=== PATIENT | male | born 1950 | race Asian ===

== ENCOUNTER 2021-12-15 08:33 | Inpatient (IN) | payer OTHER ==
[~2021-12-15] VITALS: Ht 167.6 cm; Wt 64.0 kg
[2021-12-15 08:33] VITALS: BP_SYST 179
--- NOTE | 2021-12-15 08:33 | NUR ---
BROUGHT IN BY [facility], TRIAGED, PT TO GO TO BED #4. REPORT GIVEN TO LATOYA
--- NOTE | 2021-12-15 08:35 | NUR ---
ED MD WOOD AT BEDSIDE
--- NOTE | 2021-12-15 09:00 | NUR ---
RECEIVED PT IN BED #4 FROM HOME BIB BLS FOR CC OF BILATERAL SWELLING OF THE LOWER LEGS. PT IS STABLE, IN NAD, VSS, AAOx3, LOOKS BESHEVELED AND UNKEMPT. AWAITING ADDITIONAL ASSESSMENTS FOR PLAN OF CARE WITH DISPOSITION.
[2021-12-15 09:48] LABS: BASOPHILS % (AUTO) 0.5 % (0.0-2.0); EOSINOPHILS # (AUTO) 0.1 K/uL (0.0-0.4); EOSINOPHILS % (AUTO) 0.9 % (0.0-4.0); HEMATOCRIT 42.4 % (36-54); HEMOGLOBIN 14.3 g/dL (14.0-18.0); LYMPHOCYTES # (AUTO) 1.1 K/uL (1.0-5.5); LYMPHOCYTES % (AUTO) 18.9 % (20.5-51.5); MEAN CORPUSCULAR HEMOGLOBIN 32 pg (27-31); MEAN CORPUSCULAR HGB CONC 34 % (32-36); MEAN CORPUSCULAR VOLUME 93 fL (79.0-98.0); MONOCYTES # (AUTO) 0.4 K/uL (0.0-1.0); MONOCYTES % (AUTO) 6.8 % (1.7-9.3); NEUTROPHILS # (AUTO) 4.4 K/uL (1.8-7.7); NEUTROPHILS % (AUTO) 72.9 % (40.0-70.0); PLATELET COUNT (AUTO) 167 K/uL (130-430); RED BLOOD CELL COUNT(AUTO) 4.55 MIL/uL (4.2-6.2); RED CELL DISTRIBUTION WIDTH 13.3 % (9.0-15.0)
[2021-12-15 10:08] LABS: BILIRUBIN,URINE NEGATIVE (NEGATIVE); CLARITY/URINE CLEAR (CLEAR); GLUCOSE,URINE 3+ (NEGATIVE); KETONES,URINE 1+ (NEGATIVE); LEUKOCYTE ESTERASE ,URINE NEGATIVE (NEGATIVE); NITRITE, URINE NEGATIVE (NEGATIVE); PROTEIN URINE TRACE (NEGATIVE); UROBILINOGEN,URINE 0.2 (0.2-1.0)
[2021-12-15 10:10] LABS: BLOOD, URINE TRACE (NEGATIVE); COLOR,URINE STRAW (YELLOW)
[2021-12-15 10:21] LABS: ALANINE AMINOTRANSFERASE 11 U/L (12-78); ALBUMIN 2.6 g/dL (3.4-4.8); ANION GAP 11 (5-15); ASPARTATE AMINOTRANSFERASE 16 U/L (10-37); CALCIUM 8.5 mg/dL (8.4-11.0); CHLORIDE 98 mmol/L (98-107); CREATININE 1.62 mg/dL (0.55-1.30); SODIUM SERUM 133 mmol/L (136-145); TOTAL BILIRUBIN 0.2 mg/dL (0.0-1.0); UREA NITROGEN, BLOOD 35 mg/dL (8-21)
[2021-12-15 10:28] LABS: GFR AFRICAN AMERICAN 54 mL/min (>90)
[2021-12-15 10:29] LABS: GLUCOSE 539 mg/dL (70-99)
[2021-12-15 10:46] LABS: BACTERIA,URINE FEW /HPF (None Seen); WBC,URINE 0-3 /HPF (0-3)
[2021-12-15] MEDS ORDERED: INSULIN REGULAR, HUMAN 10 UNITS/0.1 ML INJ SUBCUT ONE (11:15)
[2021-12-15] MEDS ORDERED: ASPIRIN 325 MG TABLET PO ONE (11:15)
[2021-12-15] MEDS ORDERED: NACL 0.9% 1,000 ML IV ONE (11:15)
--- NOTE | 2021-12-15 11:50 | NUR ---
Admit bed requested Patient will be admitted to care of . Admitted to TELEMETRY unit. Diagnosis NSTEMI AND EMANUEL Inpatient (Yes or No) Y Observation (Yes or No) B Orientation concerns or request close to nursing station (Yes or No) N Covid Status N On vent or bipap N Isolation requirements N Needs a sitter N From Home (Yes or if No enter name of facility) Y Requires Dialysis (Yes or No) N Med Rec Completed (Yes of No) Y
--- NOTE | 2021-12-15 12:37 | NUR ---
COVID-19 LINDSEY SWAB OBTAINED AND SENT TO THE LAB.
--- NOTE | 2021-12-15 12:47 | NUR ---
Patient will be admitted to care of [facility]. Admitted to TELEMETRY unit. Will go to room 107A. Belongings list completed. Complete and up to date summary report printed. SBAR report to be given at bedside with opportunity for questions.
[2021-12-15 13:30] VITALS: BP_SYST 147
--- NOTE | 2021-12-15 13:30 | NUR ---
ADMIT NOTES PATIENT IS AWAKE, ALERT, AND ORIENTED. AMBULATORY WITH ASSISTANCE. VITAL SIGNS OBTAINED. PATIENT SPO2 AT 98% ON ROOM AIR. NO S/S OF DISTRESS NOTED. PATIENT STATES PAIN 3/ 10 TOLERABLE. NO REQUEST OF PAIN MEDS. PATIENT HAS BEEN ORIENTED TO THE ROOM AND USE OF CALL LIGHT. PATIENT AWARE TO CALL FOR ASSISTANCE. SAFETY PRECAUTIONS IN PLACE AND CALL LIGHT WITHIN REACH.
--- NOTE | 2021-12-15 13:40 | NUR ---
CONSULTATION PAGED/CALLED Reason for Consultation: [] EMANUEL Person Who was Notified: [] NASH Consulting Physician: [] DR Vanessa YU Occupancy Specialist Specialty: [] TUNNELING MACHINE OPERATOR Ordering Physician: [] DR CHOW
--- NOTE | 2021-12-15 13:44 | NUR ---
CONSULTATION PAGED/CALLED Reason for Consultation: [] NSTEMI Person Who was Notified: [] DR Sedrick CHOW Consulting Physician: [] DR Sedrick CHOW Facilities Engineering Manager Specialty: [] CARDIO Ordering Physician: [] DR Merlene CHOW
[2021-12-15 16:00] VITALS: BP_SYST 156
--- NOTE | 2021-12-15 16:00 | NUR ---
NOTES ASSISTED PATIENT TO RESTROOM. PATIENT DENIES ANY PAIN OR DISCOMFORT AT THIS MOMENT. PATIENT BACK IN BED. SAFETY PRECAUTIONS IN PLACE AND CALL LIGHT WITHIN REACH.
[2021-12-15] MEDS ORDERED: GLIP10TA11 PO (17:58)
[2021-12-15] MEDS ORDERED: METF-518 PO (17:58)
[2021-12-15] MEDS ORDERED: amLODIPine BESYLATE 10 MG TABLET PO ONE (18:30)
[2021-12-15] MEDS ORDERED: hydrALAZINE HCL 20 MG/ML VIAL IV PRN (18:30)
--- NOTE | 2021-12-15 18:30 | NUR ---
CLOSING NOTES PATIENT IN BED, EATING DINNER, HOB ELEVATED. NO S/S OF DISTRESS. NO SOB. PATIENT DENIES ANY PAIN AT THIS TIME. BREATHING IS EVEN AND NON LABORED. SPO2 98- 99% ON ROOM AIR. SAFETY PRECAUTIONS IN PLACE AND CALL LIGHT WITHIN REACH. PATIENT AWARE TO CALL FOR ASSISTANCE WHEN NEEDED.
[2021-12-15] MEDS ORDERED: ACETAMINOPHEN 325 MG TABLET PO PRN (18:45)
[2021-12-15] MEDS ORDERED: HYDROcodone/ACETAMIN 5-325 MG TAB (NORCO/ VICODIN) PO PRN ×2 (18:45)
[2021-12-15] MEDS ORDERED: metFORMIN HCL 500 MG TABLET PO ONE (18:45)
[2021-12-15 21:02] VITALS: BP_SYST 158
[2021-12-15] MEDS: INSULIN REGULAR, HUMAN 100 UNITS/ML, 10 ML VIAL (humuLIN R) SUBCUT PRN (21:29)
--- NOTE | 2021-12-15 21:30 | NUR ---
Blood glucose 516. 12 units insulin given per SSI parameter. MD notified. No further orders at this time. Will continue to monitor
[2021-12-15] MEDS ORDERED: ONDANSETRON HCL 4 MG/2 ML VIAL IVP PRN (23:15)
[2021-12-15] MEDS ORDERED: LORazepam 2 MG/ML VIAL IVP PRN (23:15)
--- NOTE | 2021-12-16 00:26 | NUR ---
CONSULTATION CALLED FOR DR. SHUKLA-SAYED FOR CONSULT OF DM ORDER BY GERALDO LI SPOKE WITH DR JERZY ALMEIDA
[2021-12-16] MEDS: NACL 0.9% 1,000 ML IV SCH ×2 (01:10→09:15)
[2021-12-16 01:43] VITALS: BP_SYST 129
[2021-12-16 04:21] VITALS: BP_SYST 140
[2021-12-16 07:32] LABS: ALBUMIN 2.5 g/dL (3.4-4.8); CALCIUM 8.2 mg/dL (8.4-11.0); CREATININE 1.22 mg/dL (0.55-1.30); PHOSPHORUS 3.4 mg/dL (2.7-4.5); POTASSIUM 3.4 mmol/L (3.5-5.1); TOTAL BILIRUBIN 0.2 mg/dL (0.0-1.0)
[2021-12-16 07:56] LABS: BASOPHILS % (AUTO) 0.3 % (0.0-2.0); EOSINOPHILS # (AUTO) 0.2 K/uL (0.0-0.4); HEMATOCRIT 41.9 % (36-54); HEMOGLOBIN 14.4 g/dL (14.0-18.0); LYMPHOCYTES # (AUTO) 2.7 K/uL (1.0-5.5); LYMPHOCYTES % (AUTO) 32.5 % (20.5-51.5); MEAN CORPUSCULAR HEMOGLOBIN 32 pg (27-31); MEAN CORPUSCULAR HGB CONC 34 % (32-36); MEAN CORPUSCULAR VOLUME 92 fL (79.0-98.0); MONOCYTES # (AUTO) 0.5 K/uL (0.0-1.0); MONOCYTES % (AUTO) 5.7 % (1.7-9.3); NEUTROPHILS # (AUTO) 4.9 K/uL (1.8-7.7); NEUTROPHILS % (AUTO) 59.5 % (40.0-70.0); PLATELET COUNT (AUTO) 165 K/uL (130-430); RED BLOOD CELL COUNT(AUTO) 4.53 MIL/uL (4.2-6.2); RED CELL DISTRIBUTION WIDTH 13.3 % (9.0-15.0); WHITE BLOOD COUNT (AUTO) 8.2 K/uL (4.8-10.8)
[2021-12-16] MEDS ORDERED: GLUCOSE (DEXTROSE) ORAL GEL -Adults PO PRN (08:30)
[2021-12-16] MEDS ORDERED: D5W 1,000 ML IV PRN (08:30)
[2021-12-16] MEDS ORDERED: DEXTROSE 50% JECT 50 ML DISP.SYRIN IVP PRN (08:30)
[2021-12-16] MEDS ORDERED: PIOGLITAZONE HCL 15 MG TABLET PO SCH (09:00)
[2021-12-16] MEDS ORDERED: amLODIPine BESYLATE 10 MG TABLET PO SCH (09:00)
[2021-12-16] MEDS: metFORMIN HCL 500 MG TABLET PO SCH ×2 (10:19→18:08)
[2021-12-16] MEDS: INSULIN REGULAR, HUMAN 100 UNITS/ML, 10 ML VIAL (humuLIN R) SUBCUT PRN ×2 (11:00→18:16)
[2021-12-16] MEDS ORDERED: POTASSIUM CHLORIDE 20 MEQ TAB.PRT.SR PO ONE (11:45)
[2021-12-16] MEDS ORDERED: HYDR-3919 PO (11:46)
[2021-12-16] MEDS ORDERED: METF-379 PO (11:46)
[2021-12-16] MEDS ORDERED: PIOG15TA8 PO (11:46)
[2021-12-16] MEDS ORDERED: NOR10 PO (11:46)
[2021-12-16] MEDS ORDERED: GLIP10TA11 PO (11:46)
[2021-12-16 12:49] VITALS: BP_SYST 149
[2021-12-16 15:30] VITALS: BP_SYST 149
[2021-12-16 16:29] VITALS: BP_SYST 137
--- NOTE | 2021-12-16 19:15 | NUR ---
Handoff has been given to VIKTOR
--- NOTE | 2021-12-16 19:22 | NUR ---
Mr Tomlin has been assessed as indicated. he had been noted to be both pleasant and cooperative. He has been DC to home however he is presently waiting for a TAXI. all DC instructions have been reviewed. He has expressed that he understood, and signed documentation to indicate as much. IV access has been removed. Heart monitor has been removed. He is dressed in street shoes that have been provided by the hospital and hospital issued pant and gown due to the fact that his garments from home are aoiled. he has no s/s of distress or discomfort and is compliant with the plan to DC to home today.
--- NOTE | 2021-12-16 21:00 | NUR ---
Dr. Collado present on unit and stated that he wanted to make changes to patient's diabetes medications. Since taxi was scheduled to arrive in 10-15 minutes to take patient home, Dr. Collado gave instructions to have patient call his office on Sunday and make a follow up appointment. Patient given Dr. Collado's business card with phone number and verbalized understanding of instructions to make a follow up appointment on Sunday.
--- NOTE | 2021-12-16 21:19 | NUR ---
D/C Patient Patient given D/C instructions and Dr. Collado's contact info and instructed to make a follow up appointment on Sunday. Patient verbalized understanding. Patient in stable condition, BP 144/86, HR 71. ID band removed. IV catheter removed by day shift nurse, no active bleeding noted. All belongings sent with patient. [facility] for discharge to home.
[2021-12-17] MEDS ORDERED: metFORMIN HCL 500 MG TABLET PO SCH (08:00)
[2021-12-17] MEDS ORDERED: INSULIN GLARGINE 100 UNITS/ML 10 ML VIAL SUBCUT SCH (09:00)
== END 2021-12-16 21:19 | disposition home or self-care (01) | DRG 682 ==
LOC: SED 08:33 → STU 11:08
PROVIDERS: ADMIT Preventive Medicine Preventive Medicine/Occupational Environmental Medicine; ATTEND Preventive Medicine Preventive Medicine/Occupational Environmental Medicine
DX: N17.0 Acute kidney failure with tubular necrosis (principal); I21.A1 Myocardial infarction type 2; E43 Unspecified severe protein-calorie malnutrition; S22.31XA Fracture of one rib, right side, initial encounter for closed fracture; E87.1 Hypo-osmolality and hyponatremia; I42.9 Cardiomyopathy, unspecified; N17.9 Acute kidney failure, unspecified; E11.65 Type 2 diabetes mellitus with hyperglycemia; I12.9 Hypertensive chronic kidney disease with stage 1 through stage 4 chronic kidney disease, or unspecified chronic kidney disease; E88.09 Other disorders of plasma-protein metabolism, not elsewhere classified; E11.21 Type 2 diabetes mellitus with diabetic nephropathy; Z20.822 Contact with and (suspected) exposure to COVID-19; X58.XXXA Exposure to other specified factors, initial encounter; E11.22 Type 2 diabetes mellitus with diabetic chronic kidney disease; N18.9 Chronic kidney disease, unspecified; Z79.84 Long term (current) use of oral hypoglycemic drugs; Y93.89 Activity, other specified; Y92.89 Other specified places as the place of occurrence of the external cause; Y99.8 Other external cause status
CPT/HCPCS: 36415; 71045; 76770; 80053; 81000; 82962; 83735; 83880; 84100; 84484; 85025; 93005; 93306; 96372; 99285; G0378; J0360; J1815

== ENCOUNTER 2022-01-18 08:38 | Inpatient (IN) | payer OTHER ==
[~2022-01-18] VITALS: Ht 165.1 cm; Wt 72.6 kg
[~2022-01-18 08:38] MED LIST: GLIP10TA11 PO; HYDR-3919 PO; METF-379 PO; NOR10 PO; PIOG15TA8 PO
[2022-01-18 08:42] VITALS: BP_SYST 126
--- NOTE | 2022-01-18 08:45 | NUR ---
Patient to ER bed 4 to gown for evaluation. Side rails up. Report given to Ling TURNER.
--- NOTE | 2022-01-18 08:46 | NUR ---
RECEIVED PT FROM EMT, AAOX4. VERBALLY RESPONSIBE, ABLE TO MAKE NEEDS KNOWN AND FOLLOW COMMANDS. PUPILS EQUAL, 3MM BRISK BILATERALLY. ON R/A. NO COUGH OR SOB NOTED. LUNG SOUND CTA. AB SOFT, NONTENDER, NONDISTENDED. BOWEL SOUNDS ACTIVE X4. DENIES N/V/D/C. DISTAL PULSES NORMAL, SKIN CDI, NO EDEMA. PT STATES HE HAS BEEN WEAK X 2 WEEKS. HE ROLLED OOB TO FLOOR WHEN ATTEMPTING TO GO TO THE BATHROOM. HIS NEIGHBOR FOUND HIN ON FLOOR. PT DENIES PAIN. STATED NO HEAD INJURY. PT STATE BLE ARE STIFF.
--- NOTE | 2022-01-18 08:55 | NUR ---
DR. WOOD AT BEDSIDE ASSESSING PT.
--- NOTE | 2022-01-18 09:32 | NUR ---
IV ACCESS PLACED TO RW 22G S/L. URINE AND LINDSEY SAMPLE OBTAINED.
[2022-01-18 09:44] LABS: BASOPHILS % (AUTO) 0.5 % (0.0-2.0); HEMATOCRIT 45.7 % (36-54); HEMOGLOBIN 15.6 g/dL (14.0-18.0); LYMPHOCYTES # (AUTO) 0.8 K/uL (1.0-5.5); LYMPHOCYTES % (AUTO) 10.6 % (20.5-51.5); MEAN CORPUSCULAR HEMOGLOBIN 32 pg (27-31); MEAN CORPUSCULAR HGB CONC 34 % (32-36); MEAN CORPUSCULAR VOLUME 92 fL (79.0-98.0); MONOCYTES # (AUTO) 0.6 K/uL (0.0-1.0); MONOCYTES % (AUTO) 8.4 % (1.7-9.3); NEUTROPHILS % (AUTO) 80.5 % (40.0-70.0); PLATELET COUNT (AUTO) 174 K/uL (130-430); RED BLOOD CELL COUNT(AUTO) 4.96 MIL/uL (4.2-6.2); RED CELL DISTRIBUTION WIDTH 13.7 % (9.0-15.0); WHITE BLOOD COUNT (AUTO) 7.5 K/uL (4.8-10.8)
[2022-01-18 09:50] LABS: ANION GAP 8 (5-15); CHLORIDE 97 mmol/L (98-107); CREATININE 1.75 mg/dL (0.55-1.30); GLUCOSE 353 mg/dL (70-99); POTASSIUM 4.7 mmol/L (3.5-5.1); SODIUM SERUM 130 mmol/L (136-145); UREA NITROGEN, BLOOD 32 mg/dL (8-21)
[2022-01-18 09:58] LABS: ALANINE AMINOTRANSFERASE 19 U/L (12-78); ALBUMIN 2.9 g/dL (3.4-4.8); ASPARTATE AMINOTRANSFERASE 39 U/L (10-37); PHOSPHORUS 4.3 mg/dL (2.7-4.5); TOTAL BILIRUBIN 0.4 mg/dL (0.0-1.0)
[2022-01-18 10:04] LABS: GFR AFRICAN AMERICAN 50 mL/min (>90)
--- NOTE | 2022-01-18 10:09 | NUR ---
EKG performed at by Janey TURNER. Physician given copy of EKG for review.
--- NOTE | 2022-01-18 10:11 | NUR ---
DR. WOOD MADE AWARE TROPONIN 115. EKG COMPLETED PT NSR.
[2022-01-18 10:14] LABS: BILIRUBIN,URINE NEGATIVE (NEGATIVE); BLOOD, URINE 2+ (NEGATIVE); COLOR,URINE YELLOW (YELLOW); GLUCOSE,URINE 2+ (NEGATIVE); KETONES,URINE TRACE (NEGATIVE); LEUKOCYTE ESTERASE ,URINE 1+ (NEGATIVE); NITRITE, URINE NEGATIVE (NEGATIVE); PH,URINE 5.5 (5.0-8.0); PROTEIN URINE 2+ (NEGATIVE); UROBILINOGEN,URINE 0.2 (0.2-1.0)
[2022-01-18 10:17] LABS: CLARITY/URINE HAZY (CLEAR)
[2022-01-18] MEDS ORDERED: AZITHROMYCIN 500 MG in NS 250 ML IV ONE (10:30)
[2022-01-18 10:40] LABS: BACTERIA,URINE MODERATE /HPF (None Seen); MUCUS,URINE 1+ /LPF (None Seen); WBC,URINE 20-50 /HPF (0-3)
[2022-01-18] MEDS ORDERED: NACL 0.9% 1,000 ML IV ONE (10:45)
--- NOTE | 2022-01-18 10:50 | NUR ---
dental equipment technician at bedside.
[2022-01-18] MEDS ORDERED: AZITHROMYCIN 500 MG/VIAL (ZITHROMAX) IV ONE (11:19)
--- NOTE | 2022-01-18 16:07 | NUR ---
AAdmit bed requested Patient will be admitted to care of [facility] Contre[facility] Admitted to unit. Diagnosis Inpatient (Yes or No) Observation (Yes or No) Orientation concerns or request close to nursing station (Yes or No) Covid Status On vent or bipap Isolation requirements Needs a sitter From Home (Yes or if No enter name of facility) Requires Dialysis (Yes or No) Med Rec Completed (Yes of No)
--- NOTE | 2022-01-18 16:12 | NUR ---
PT GIVEN SNACK AND WATER, INFORMED HE WILL TRANSFER TO [facility]. PT AGREED WITH POC.
[2022-01-18 18:00] VITALS: BP_SYST 122
[2022-01-18] MEDS ORDERED: ENOXAPARIN SODIUM 40 MG/0.4 ML SYRINGE SUBCUT ONE (20:00)
[2022-01-18 20:45] VITALS: BP_SYST 123
[2022-01-18] MEDS: ASCORBIC ACID 500 MG TABLET PO SCH (21:44)
[2022-01-18] MEDS: CEFEPIME 2 GM in D5W 100 ML IV SCH (21:44)
[2022-01-18] MEDS: DECADRON 4 MG TABLET PO SCH (21:47)
--- NOTE | 2022-01-18 22:03 | NUR ---
PAGED; DR DOMINGUEZ PAGED TO NOTIFY D DIMER LEVEL .
[2022-01-18] MEDS: AZITHROMYCIN 500 MG in NS 250 ML IV SCH (23:22)
[2022-01-19 00:07] VITALS: BP_SYST 110
[2022-01-19 08:00] VITALS: BP_SYST 150
[2022-01-19] MEDS ORDERED: CHOLECALCIFEROL (VITAMIN D3) 5,000 UNIT TABLET PO SCH (09:00)
--- NOTE | 2022-01-19 09:00 | NUR ---
OPENING NOTE Patient sitting up in bed, alert and oriented x4. Patient given an update on his plan of care, verbalized understanding. No sign of distress and patient denies pain. Breathing is nonlabored and even, oxygen saturation 98%. IV site is clean, dry, intact, and saline locked. All needs met at this time and safety checks made.
[2022-01-19] MEDS: ASCORBIC ACID 500 MG TABLET PO SCH ×2 (09:12→21:14)
[2022-01-19] MEDS: CHOLECALCIFEROL (VITAMIN D3) 5,000 UNIT TABLET PO SCH (09:12)
[2022-01-19] MEDS: ENOXAPARIN SODIUM 40 MG/0.4 ML SYRINGE SUBCUT SCH (09:13)
[2022-01-19 12:21] VITALS: BP_SYST 137
--- NOTE | 2022-01-19 14:12 | NUR ---
ROUNDS Patient resting in bed watching TV. No complaints of pain and no sign of distress. Breathing is nonlabored and even. Patient denies difficulty breathing or shortness of breath. All needs met at this time and safety checks made.
[2022-01-19 16:13] VITALS: BP_SYST 119
--- NOTE | 2022-01-19 19:37 | NUR ---
CLOSING NOTE Patient in bed resting after an episode where he was attempting to leave his room, nude, after pulling out his IV. Patient states he "just wanted more attention from the staff" but was unable to verbalize any needs he needed met. Patient returned to bed and no active bleeding at the IV site. fast food shift lead aware a new IV will need to be placed before IV antibiotics can be run. Educated patient on the importance of staying in his room to avoid spreading COVID and for his safety. Patient verbalized understanding. No sign of distress, breathing is nonlabored and even. Safety checks made and all needs met at this time. Endorsed to retail shift leader nurse.
[2022-01-19] MEDS: CEFEPIME 2 GM in D5W 100 ML IV SCH (20:00)
[2022-01-19] MEDS: AZITHROMYCIN 500 MG in NS 250 ML IV SCH (21:00)
[2022-01-19] MEDS: DECADRON 4 MG TABLET PO SCH (21:14)
[2022-01-19 21:27] VITALS: BP_SYST 139
[2022-01-20] VITALS (7 sets, daily range): BP systolic 123–182
[2022-01-20] MEDS ORDERED: LEVO250T43 PO (10:49)
[2022-01-20] MEDS ORDERED: VITD2000 PO (10:52)
[2022-01-20] MEDS ORDERED: ASCO500T19 PO (10:52)
[2022-01-20] MEDS: ENOXAPARIN SODIUM 40 MG/0.4 ML SYRINGE SUBCUT SCH (10:58)
[2022-01-20] MEDS: CHOLECALCIFEROL (VITAMIN D3) 5,000 UNIT TABLET PO SCH (11:00)
[2022-01-20] MEDS ORDERED: CEFEPIME 2 GM in D5W 100 ML IV SCH (11:00)
[2022-01-20] MEDS: ASCORBIC ACID 500 MG TABLET PO SCH ×2 (11:00→23:14)
[2022-01-20] MEDS: AZITHROMYCIN 500 MG in NS 250 ML IV SCH (11:00)
--- NOTE | 2022-01-20 12:30 | NUR ---
RUIZ Abdi received a call from APS Dub Room Engineer Mrs. Singh regarding patient's living condition. According to Mrs. Singh, the patient lives alone and does not have a caregiver, he has "people that are helping him out of the kindness of their heart but are not actual caregivers". LEAD INFORMATICA DEVELOPER informed her there was a current order for discharge and no home health orders at this time. APS Dub Room Engineer shared the patient is not med compliant when at home and is concerned over the condition of his home. APS worker inquired into availability of home health and if this was possible for patient to ensure his needs are met at home. RUIZ Abdi consulted with Glass Sagger Gely who met with patient to confirm patient does not have caregiver. Request will be done for SNF LEAD INFORMATICA DEVELOPER contacted APS Dub Room Engineer Mrs. Singh to update her that patient will not be discharged today and a request has been made for SNF. LEAD INFORMATICA DEVELOPER will continue to be available as needed
--- NOTE | 2022-01-20 16:25 | NUR ---
Spoke w/the patient,he stated he has no one to help him at home. His neighbors help him and have reported him to APS because he cannot take care of himself. The patient will not be able to go home, he has no one to help him. He has agreed to SNF placement, until he is medically stable for discharge. RN to call MD for SNF order.
[2022-01-20] MEDS: DEXAMETHASONE 1 MG TABLET (DECADRON) PO SCH (23:14)
[2022-01-21 07:00] VITALS: BP_SYST 160
[2022-01-21 08:00] VITALS: BP_SYST 160
[2022-01-21] MEDS: ASCORBIC ACID 500 MG TABLET PO SCH ×2 (08:43→21:13)
[2022-01-21] MEDS: ENOXAPARIN SODIUM 40 MG/0.4 ML SYRINGE SUBCUT SCH (08:43)
[2022-01-21] MEDS: AZITHROMYCIN 500 MG in NS 250 ML IV SCH (08:44)
[2022-01-21] MEDS: CHOLECALCIFEROL (VITAMIN D3) 5,000 UNIT TABLET PO SCH (08:44)
[2022-01-21 12:00] VITALS: BP_SYST 147
[2022-01-21 12:10] LABS: ANION GAP 9 (5-15); BASOPHILS % (AUTO) 0.1 % (0.0-2.0); CALCIUM 8.6 mg/dL (8.4-11.0); CHLORIDE 93 mmol/L (98-107); CREATININE 1.58 mg/dL (0.55-1.30); HEMOGLOBIN 15.2 g/dL (14.0-18.0); LYMPHOCYTES % (AUTO) 15.1 % (20.5-51.5); MEAN CORPUSCULAR HEMOGLOBIN 31 pg (27-31); MEAN CORPUSCULAR HGB CONC 34 % (32-36); MEAN CORPUSCULAR VOLUME 93 fL (79.0-98.0); MONOCYTES # (AUTO) 0.4 K/uL (0.0-1.0); MONOCYTES % (AUTO) 6.4 % (1.7-9.3); NEUTROPHILS % (AUTO) 78.4 % (40.0-70.0); PLATELET COUNT (AUTO) 161 K/uL (130-430); POTASSIUM 4.8 mmol/L (3.5-5.1); RED BLOOD CELL COUNT(AUTO) 4.86 MIL/uL (4.2-6.2); RED CELL DISTRIBUTION WIDTH 13.5 % (9.0-15.0); SODIUM SERUM 124 mmol/L (136-145); UREA NITROGEN, BLOOD 41 mg/dL (8-21); WHITE BLOOD COUNT (AUTO) 6.4 K/uL (4.8-10.8)
[2022-01-21] MEDS: cefTRIAXone 1 GM in D5W 50 ML IV SCH (12:20)
--- NOTE | 2022-01-21 12:25 | NUR ---
Patient accidentally pulled his right fa IV out due to patient in a hurry to use the restroom for the number 2. Started new IVSL on left wrist 22g with good blood return. Patient tolerated procedure well. Will cont to monitor patient
[2022-01-21 12:54] LABS: GFR AFRICAN AMERICAN 56 mL/min (>90); GLUCOSE 668 mg/dL (70-99)
--- NOTE | 2022-01-21 14:00 | NUR ---
CM: Faxed referral package to Brenda/Jaz[facility]. she aware of the social issues per Gely's note and requiring snf placement. She will call nursing unit when the is accepting snf and bed. Brenda is [employer] continuous [employer] for danny and avi contact # [phone] fax # [phone].
[2022-01-21 14:16] LABS: C-REACTIVE PROTEIN QUANT < 0.2 mg/dL (0-0.5)
[2022-01-21 16:17] VITALS: BP_SYST 147
[2022-01-21 18:21] VITALS: BP_SYST 147
--- NOTE | 2022-01-21 19:16 | NUR ---
END SHIFT REPORT GIVEN TO YUE MERLOS. THANK YOU
[2022-01-21 19:46] VITALS: BP_SYST 156
[2022-01-21] MEDS: DEXAMETHASONE 1 MG TABLET (DECADRON) PO SCH (21:13)
[2022-01-22 07:00] VITALS: BP_SYST 137
[2022-01-22] MEDS: ASCORBIC ACID 500 MG TABLET PO SCH ×2 (09:17→21:54)
[2022-01-22] MEDS: CHOLECALCIFEROL (VITAMIN D3) 5,000 UNIT TABLET PO SCH (09:17)
[2022-01-22] MEDS: ENOXAPARIN SODIUM 40 MG/0.4 ML SYRINGE SUBCUT SCH (09:17)
[2022-01-22] MEDS: AZITHROMYCIN 500 MG in NS 250 ML IV SCH (09:18)
[2022-01-22] MEDS ORDERED: INSULIN GLARGINE 100 UNITS/ML 10 ML VIAL SUBCUT ONE (09:30)
[2022-01-22 12:00] VITALS: BP_SYST 131
[2022-01-22] MEDS: cefTRIAXone 1 GM in D5W 50 ML IV SCH (12:37)
[2022-01-22] MEDS: NACL 0.9% 1,000 ML IV SCH ×2 (15:21→21:55)
[2022-01-22 16:00] VITALS: BP_SYST 142
--- NOTE | 2022-01-22 16:05 | NUR ---
Patient d/c to [facility] on 01/23/22. Call Alyson [phone]. Please call [employer] [facility] for manager outreach [phone] for any other questions. Thank you
--- NOTE | 2022-01-22 19:17 | NUR ---
END SHIFT REPORT GIVEN TO YUE CAVANAUGH. IV ON LEFT WRIST INFILTRATED. IV NS STOPPED AT THIS TIME. THANK YOU
[2022-01-22 20:20] VITALS: BP_SYST 132
[2022-01-22] MEDS: DEXAMETHASONE 1 MG TABLET (DECADRON) PO SCH (21:54)
[2022-01-23 00:40] VITALS: BP_SYST 147
[2022-01-23] MEDS: INSULIN REGULAR, HUMAN 100 UNITS/ML, 10 ML VIAL (humuLIN R) SUBCUT PRN ×4 (06:52→22:35)
--- NOTE | 2022-01-23 07:00 | NUR ---
Closing Patient resting in bed, unlabored breathing on room air. IV pulled out this morning. Bed linens and gown changed. Call light in reach, bed low and locked. Care endorsed to oncoming nurse.
--- NOTE | 2022-01-23 07:15 | NUR ---
OPENING NOTE RECEIVED SBAR FROM NIGHT RN, PATIENT IN BED, RESPIRATIONS EVEN, NON LABORED, BED IN LOW AND LOCKED POSITION, CALL LIGHT WITHIN REACH.
[2022-01-23 07:45] LABS: CALCIUM 8.5 mg/dL (8.4-11.0); CREATININE 1.33 mg/dL (0.55-1.30); POTASSIUM 4.8 mmol/L (3.5-5.1)
[2022-01-23 08:00] VITALS: BP_SYST 136
[2022-01-23] MEDS ORDERED: INSULIN GLARGINE 100 UNITS/ML 10 ML VIAL SUBCUT SCH (09:00)
[2022-01-23] MEDS: ASCORBIC ACID 500 MG TABLET PO SCH ×2 (09:20→22:22)
[2022-01-23] MEDS: ENOXAPARIN SODIUM 40 MG/0.4 ML SYRINGE SUBCUT SCH (09:21)
[2022-01-23] MEDS: CHOLECALCIFEROL (VITAMIN D3) 5,000 UNIT TABLET PO SCH (09:21)
[2022-01-23] MEDS: AZITHROMYCIN 500 MG in NS 250 ML IV SCH (09:23)
--- NOTE | 2022-01-23 09:30 | NUR ---
NURSE NOTE ASSISTED PATIENT WITH AMBULATION TO THE BATHROOM, BM AND VOIDED, RETURNED TO BED. PATIENT DENIES ANY PAIN OR DISCOMFORT
--- NOTE | 2022-01-23 10:20 | NUR ---
MD DR CHING BEDSIDE EXAMINING PATIENT. NEW ORDERS RECEIVED Addendum: 01/23/22 at 1037 by Dina Ortega RN DR CHING AWARE THAT PATIENT DOES NOT HAVE IV ACCESS
[2022-01-23] MEDS ORDERED: INSULIN GLARGINE 100 UNITS/ML 10 ML VIAL SUBCUT ONE (10:30)
[2022-01-23] MEDS ORDERED: ROCI2 IM/IV (11:16)
--- NOTE | 2022-01-23 11:26 | NUR ---
Millwright Helper CHARGE OPERATOR spoke with pts. nephKylie Richmond in [place], . who stated he has hired someone to check on his uncle/pt. about 20 minutes a day at his apt. CHARGE OPERATOR mentioned his uncles medical condition may require more assistance and the neighbors are no longer available to assist. Abel was asking if there is a program where they can apply for the cost of care to be covered. CHARGE OPERATOR stated pt. has [employer] and the cost of home care would probably be out of pocket. CHARGE OPERATOR also informed Abel, pt. has a PT eval. CHARGE OPERATOR emailed some senior resources including home care agencies to Abel. CHARGE OPERATOR will update him with the PT. report, but asked him to make a plan for his discharge. Addendum: 01/23/22 at 1553 by Trinidad MELCHOR RUIZ Abdi contacted Abel to obtain email address to provide applicable resources. RUIZ Abdi emailed the following resources to [email or web address] - In Home Supportive Services Resource Packet - Home Care Resource Packet - Assisted Living Resource Packet CHARGE OPERATOR will continue to be available as needed
[2022-01-23 12:00] VITALS: BP_SYST 130
[2022-01-23] MEDS: cefTRIAXone 1 GM in D5W 50 ML IV SCH (12:00)
--- NOTE | 2022-01-23 12:42 | NUR ---
Received a call from [facility] Foundation Drill Operator Helper Mrs Beltran [phone]. She stated patient needs FWW due to unsteady gait and not being able to get to the bathroom on time. Explained PT would evaluate the patient for DME needs.
--- NOTE | 2022-01-23 15:18 | NUR ---
Discharge Planning: DCP faxed clinicals to Jazlyn Johnson#[phone].
--- NOTE | 2022-01-23 15:34 | NUR ---
nurse note patient in bed, respirations even, non labored, bed in low and locked position call light within reach, bed alarm on. patient denies any pain or discomfort
[2022-01-23 16:00] VITALS: BP_SYST 128
[2022-01-23] MEDS: metFORMIN HCL 500 MG TABLET PO SCH (16:58)
--- NOTE | 2022-01-23 19:10 | NUR ---
closing note Provided SBAR to night RN. Patient in bed, respirations even, non labored, bed in low and locked position, call light within reach, endorsed care to night RN.
[2022-01-23] MEDS: NACL 0.9% 1,000 ML IV SCH (19:40)
[2022-01-23 20:10] VITALS: BP_SYST 128
[2022-01-23] MEDS: DEXAMETHASONE 1 MG TABLET (DECADRON) PO SCH (22:22)
[2022-01-24 00:15] VITALS: BP_SYST 128
[2022-01-24] MEDS: INSULIN REGULAR, HUMAN 100 UNITS/ML, 10 ML VIAL (humuLIN R) SUBCUT PRN ×3 (06:38→22:48)
--- NOTE | 2022-01-24 07:44 | NUR ---
Closing Patient resting in bed, unlabored breathing, no distress noted. Given insulin per sliding scale. Call light in reach, bed low and locked. Care endorsed to oncoming nurse.
[2022-01-24 08:00] VITALS: BP_SYST 150
[2022-01-24] MEDS: metFORMIN HCL 500 MG TABLET PO SCH ×2 (10:01→18:40)
[2022-01-24] MEDS: ENOXAPARIN SODIUM 40 MG/0.4 ML SYRINGE SUBCUT SCH (10:01)
[2022-01-24] MEDS: CHOLECALCIFEROL (VITAMIN D3) 5,000 UNIT TABLET PO SCH (10:01)
[2022-01-24] MEDS: INSULIN GLARGINE 100 UNITS/ML 10 ML VIAL SUBCUT SCH (10:09)
[2022-01-24] MEDS: NACL 0.9% 1,000 ML IV SCH (11:30)
[2022-01-24] MEDS: cefTRIAXone 1 GM in D5W 50 ML IV SCH (13:46)
[2022-01-24] MEDS: ASCORBIC ACID 500 MG TABLET PO SCH ×2 (14:20→22:30)
[2022-01-24 15:00] VITALS: BP_SYST 127
[2022-01-24 19:00] VITALS: BP_SYST 130
--- NOTE | 2022-01-24 19:00 | NUR ---
PATIENT HAD AN UNEVENTFUL SHIFT. PT RECEIVED IV ANTIBIOTIC THIS SHIFT PER ORDERED. PT EXHIBITS NO S/S HYPO/HYPERGLYCEMIC REACTIONS. APPETITE GOOD: PT CONSUMES > 75 % OF ALL MEALS. RESPIRATIONS EVEN ET UNLABORED. NO S/S ACUTE DISTRESS NOTED.
[2022-01-24] MEDS: DEXAMETHASONE 1 MG TABLET (DECADRON) PO SCH (22:29)
[2022-01-25 00:46] VITALS: BP_SYST 135
[2022-01-25 04:00] VITALS: BP_SYST 126
--- NOTE | 2022-01-25 05:20 | NUR ---
inserted peripheral IV access on the right forearm 22G. Benign and patent. IVF running NS 0.9% at 60cc/hr
[2022-01-25] MEDS: NACL 0.9% 1,000 ML IV SCH (05:25)
[2022-01-25] MEDS: INSULIN REGULAR, HUMAN 100 UNITS/ML, 10 ML VIAL (humuLIN R) SUBCUT PRN ×4 (06:21→22:02)
[2022-01-25 08:00] VITALS: BP_SYST 135
--- NOTE | 2022-01-25 08:15 | NUR ---
Opening Notes Patient is awake, alert and oriented x3, lethargic. No resp distress noted. Breathing is even and unlabored, RA. Pt denies any pain at this time. IV site on left FA 22 gauge intact, NS @ 60 ml/hr, infusing well. Pt sitting at EOB, emptied out urinal. Droplet precautions, covid positive. All needs met at this time. Safety and fall precautions in place. Bed in lowest position, alarm on, locked. Will continue to monitor.
--- NOTE | 2022-01-25 08:18 | NUR ---
PHYSICAL THERAPY CO-SIGN The Physical Therapy Progress Notes documented by Claims Vice President have been reviewed. Reviewed/Co-Signed by: Tawanda Medina Documentation Done by: ZEHRA ROJAS PTA Addendum: 01/25/22 at 0819 by Tawanda Medina PT Amended: Links added.
[2022-01-25 08:42] LABS: CALCIUM 8.7 mg/dL (8.4-11.0); CREATININE 1.02 mg/dL (0.55-1.30)
[2022-01-25] MEDS: metFORMIN HCL 500 MG TABLET PO SCH ×2 (09:10→17:24)
[2022-01-25] MEDS: ASCORBIC ACID 500 MG TABLET PO SCH ×2 (09:10→21:54)
[2022-01-25] MEDS: CHOLECALCIFEROL (VITAMIN D3) 5,000 UNIT TABLET PO SCH (09:11)
[2022-01-25] MEDS: ENOXAPARIN SODIUM 40 MG/0.4 ML SYRINGE SUBCUT SCH (09:12)
--- NOTE | 2022-01-25 09:59 | NUR ---
Patient was given breakfast tray. Per pt, he never received his breakfast tray.
[2022-01-25] MEDS: INSULIN GLARGINE 100 UNITS/ML 10 ML VIAL SUBCUT SCH (10:01)
[2022-01-25] MEDS: cefTRIAXone 1 GM in D5W 50 ML IV SCH (11:37)
[2022-01-25 12:00] VITALS: BP_SYST 133
--- NOTE | 2022-01-25 12:00 | NUR ---
Notes/Taxi not taking COVID positive patients---CM aware, attempting to arrange another source of transport Patient is awake, alert and oriented x3. No resp distress noted. Breathing is even and unlabored, RA. Denies any pain. Pt has a discharge order, attempted to get a taxi for transportation. Per Iraj, the taxi service is NOT taking covid positive patients. Notified charge nurse and Gely SANDERSON. Gley to work on another source of transport. Will continue to monitor.
[2022-01-25 12:03] VITALS: BP_SYST 135
[2022-01-25 16:00] VITALS: BP_SYST 133
--- NOTE | 2022-01-25 16:00 | NUR ---
Notes Patient is laying in bed, sleeping. No resp distress, RA. No signs of pain. Will continue to monitor.
--- NOTE | 2022-01-25 16:41 | NUR ---
Discharge Planning: DCP arranged transport with [facility] [phone] P/U between 8:00pm and 8:30pm BLS ambulance aware pt is covid positive to home [address] [place] [address].
--- NOTE | 2022-01-25 18:28 | NUR ---
Closing Notes Patient is awake, alert and oriented x4. No resp distress noted. Breathing is even and unlabored, RA. Pt denies any pain at this time. IV site on right FA 22 gauge intact, NS @ 60 ml/hr, infusing well. Emptied out urinal, urine clear and yellow. Pending DC. Will endorse to next shift to complete discharge. Pending ETA pickup at [phone] Ramachandran, pt to self isolate at home until 01/28/22. All needs met at this time. Safety and fall precautions in place. Bed in lowest position, alarm on, locked. Will continue to monitor.
[2022-01-25] MEDS: DEXAMETHASONE 1 MG TABLET (DECADRON) PO SCH (21:55)
--- NOTE | 2022-01-25 23:21 | NUR ---
Discharge patient to home Discharge patient to home with all belongings. Health teachings given. follow up with PCP in 1 week. Instructed patient to do self quarantine until 01/28/22. Picked up by [facility] via gurney. Patient stable, no signs of respiratory distress, no fever, sob.
== END 2022-01-25 23:28 | disposition home or self-care (01) | DRG 177 ==
LOC: SED 08:38 → SMU 15:52
PROVIDERS: ADMIT Specialist; ATTEND Specialist
PROC: XW033E5 Introduction of Remdesivir Anti-infective into Peripheral Vein, Percutaneous Approach, New Technology Group 5 (ICD-10-PCS; principal; 2022-01-18)
DX: U07.1 COVID-19 (principal); J12.82 Pneumonia due to coronavirus disease 2019; N39.0 Urinary tract infection, site not specified; E11.22 Type 2 diabetes mellitus with diabetic chronic kidney disease; I12.9 Hypertensive chronic kidney disease with stage 1 through stage 4 chronic kidney disease, or unspecified chronic kidney disease; N18.9 Chronic kidney disease, unspecified
CPT/HCPCS: 36415; 71045; 80048; 80053; 81000; 82962; 83605; 83735; 83880; 84100; 84484; 85025; 85379; 86140; 87040; 87086; 93005; 96374; 97116-GP; 97530-GP; 99285; J0456; J0692; J0696; J1650; J1815; J7030; J7050; J7060; J8540